=== PATIENT | male | born 1960 | race Caucasian/White ===

== ENCOUNTER 2021-06-13 23:17 | Emergency (ER) | payer BC, OTHER ==
[2021-06-13 23:28] VITALS: BP 157/108; PULSE 72; TEMP 99; BMI 25.8
== END 2021-06-14 00:19 | disposition home or self-care (01) ==
LOC: FER 23:17
DX: S42.251A Displaced fracture of greater tuberosity of right humerus, initial encounter for closed fracture (principal); W19.XXXA Unspecified fall, initial encounter
CPT/HCPCS: 73030-TC-RT-FY; 99283-25